=== PATIENT | female | born 1960 | race Caucasian/White ===

== ENCOUNTER 2016-05-02 11:17 | Emergency (ER) | payer OTHER ==
[~2016-05-02] VITALS: Ht 144.8 cm; Wt 67.5 kg
[~2016-05-02 11:17] MED LIST: ASPIRIN81 M1 PO; CLONIDINE HCL0.2 MG PO; LEXAPRO10 MG PO; MOTRIN600 MG PO; NORVASC5 MG PO; TAMIFLU75 MG PO; ZESTRIL,PRINIVI20 MG PO
[2016-05-02] MEDS ORDERED: TYLENOL WITH C1 EACH PO (14:31)
[2016-05-02 14:42] VITALS: BP 164/94
== END 2016-05-02 14:45 | disposition home or self-care (01) ==
LOC: EME 11:17
PROC: 2W3DX1Z Immobilization of Left Lower Arm using Splint (ICD-10-PCS; principal; 2016-05-02)
DX: S52.612A Displaced fracture of left ulna styloid process, initial encounter for closed fracture (principal); S93.402A Sprain of unspecified ligament of left ankle, initial encounter; W18.30XA Fall on same level, unspecified, initial encounter; Y93.01 Activity, walking, marching and hiking; E11.9 Type 2 diabetes mellitus without complications; E78.5 Hyperlipidemia, unspecified; I10 Essential (primary) hypertension; I25.2 Old myocardial infarction; Z86.73 Personal history of transient ischemic attack (TIA), and cerebral infarction without residual deficits; Z79.82 Long term (current) use of aspirin
CPT/HCPCS: 73110; 73610; 99281; 99284